=== PATIENT | female | born 1995 | race Caucasian/White ===

== ENCOUNTER 2024-03-25 10:08 | Outpatient (CLI) | payer BC, SELFPAY ==
--- NOTE | ~2024-03-25 | US_ITS ---
US breast RT complete 03/25/2024 10:33 Indication: Palpable right breast lump Procedure: High-resolution complete ultrasound of the right breast including all 4 quadrants in the s ubareolar location Comparison: No prior studies for comparison. Findings: At 10:00, 10 cm from the nipple there is a normal 8 mm intramammary lymph node with fatty h ilum. No suspicious masses in the right breast to suggest malignancy. Impression: 1: No sonographic evidence for malignancy in the right breast. Benign finding. BI-RADS CATEGORY 2 - BENIGN FINDINGS Reviewed, dictated and finalized at location B. Impression: 1: No sonographic evidence for malignancy in the right breast. Benign finding. BI-RADS CATEGORY 2 - BENIGN FINDINGS
== END 2024-03-25 10:09 | disposition home or self-care (01) ==
PROVIDERS: PCP Student in an Organized Health Care Education/Training Program; Visit Provider Student in an Organized Health Care Education/Training Program
DX: N63.10 Unspecified lump in the right breast, unspecified quadrant (principal)
CPT/HCPCS: 76641